=== PATIENT | female | born 1990 | race Hispanic/Latino ===

== ENCOUNTER 2023-09-02 20:52 | Emergency (ER) | payer BC, OTHER, SELFPAY ==
[2023-09-02 20:53] VITALS: BMI 26.2
[2023-09-02 20:56] VITALS: BP 140/59
[2023-09-02 21:11] LABS: % Basophils 0.3 % (0-2); % Eosinophils 1.2 % (0-6); % Immature Granulocytes 0.3 % (0-0.5); % Lymphocytes 29.1 % (20.5-51.1); % Neutrophils 61.1 % (42.2-75.2); Absolute Eosinophils 0.1 10^3/uL (0-0.7); Absolute Lymphocytes 2.3 10^3/uL (1.2-3.4); Absolute Monocytes 0.6 10^3/uL (0.1-0.6); Absolute Neutrophils 4.8 10^3/uL (1.4-6.5); Hematocrit 32.3 % (37.0-47.0); Hemoglobin 11.5 g/dL (12.0-16.0); Mean Corp Hgb Conc. 35.6 g/dL (33.0-37.0); Mean Corpuscular Hgb 30.1 pg (27.0-31.0); Mean Corpuscular Volume 84.6 fL (81.0-99.0); Mean Platelet Volume 8.5 fL (7.4-10.4); Nucleated Red Blood Cells % 0 %; Platelet Count 358 10^3/uL (130-400); Red Blood Cell Count 3.82 10^6/uL (4.20-5.40); Red Cell Dist. Width 13.6 % (11.5-14.5); White Blood Cell Count 7.8 10^3/uL (4.8-10.8)
[2023-09-02 21:14] LABS: Urine Albumin Negative (Neg - Trace); Urine Bilirubin Negative (Negative); Urine Character Clear (Clear); Urine Color Yellow; Urine Glucose Negative (Negative); Urine Ketone Negative (Negative); Urine Leukocyte Trace (Negative); Urine Nitrite Negative (Negative); Urine Occult Blood Trace (Negative); Urine Specific Gravity 1.015 (<1.030); Urine Urobilinogen Negative (Neg - 1+)
[2023-09-02 21:29] LABS: ALT (SGPT) 24 U/L (0-35); AST (SGOT) 29 U/L (14-36); Albumin 4.1 g/dl (3.5-5.0); Alkaline Phosphatase 52 U/L (38-126); Blood Urea Nitrogen 11 mg/dl (7-17); Calcium 9.8 mg/dl (8.4-10.2); Carbon Dioxide 25 mmol/L (22-30); Chloride 100 mmol/L (98-107); Glucose 89 mg/dl (70-99); Potassium 4.6 mmol/L (3.5-5.1); Sodium 135 mmol/L (135-145); Total Bilirubin 0.2 mg/dl (0.2-1.3); Total Protein 7.4 g/dl (6.3-8.2); eGFR > 60.00
[2023-09-02 21:32] LABS: Urine Red Blood Cell 0-2 /HPF (0-2); Urine Squamous Cell >30 /LPF (Few); Urine White Cell 0-2 /HPF (0-5)
[2023-09-02 21:42] LABS: Lipase 45 U/L (23-300)
--- NOTE | 2023-09-02 22:46 | ED.GENMED ---
History of Present Illness
<CLAUDIA Luna - Last Filed: 09/02/23 23:18>
General
Chief Complaint: Abdominal Symptoms
Source: patient
Exam Limitations: none
Time Seen by Provider: 09/02/23 22:30
Nursing documentation reviewed up to this point in time: agreed with
Travel History
Have you had any contact with someone who has COVID-19?: No
Do you have any symptoms of coronavirus? Fever > 100 degrees, chills, cough, shortness of breath, sore throat, loss of taste or smell, muscle aches, or headache?: No
History of Present Illness
History of Present Illness:
This is a 33 year old female who is 6 weeks , with a PMH of hepatitis C, who presents to the ED c/o abdominal pain x 3 days. Pt states her abdomen feels very bloated and distended and she has a dull constant pain. Pt states she has been
constipated and cannot remember the last time she had a full bowel movement. She had a small BM 2 days ago but notes it was very hard and scant. Pt has also had associated SOB since the pain began and feels as though she can't take a deep breath.
She also states she has been nauseous and has had a PIERSON since this morning. She denies any fever, reflux, vomiting, diarrhea, dysuria, hematuria, or blood in her stool.
Pt has been following with her OB and last had an outpatient ultrasound last week at a clinic. She adds that she had an US at [facility] 3.5 weeks ago due to lower abdominal pain but it was benign.
Past History
<CLAUDIA Luna - Last Filed: 09/02/23 23:18>
Past History
ED Past Medical History: Other (Substance use disorder, IV drug abuse, hepatitis C)
ED Past Surgical History:
Social History
Tobacco: Vaping
Alcohol: None
Drug: Cocaine, Narcotics and IVDA
Personal: Single
Living: with family
Employment: Not employed
Family History
Family History: Other (Noncontributory)
Review of Systems
<CLAUDIA Luna - Last Filed: 09/02/23 23:18>
Review of Systems
Allergies reviewed?: Yes
All Other Systems: ROS reviewed and negative except as documented in HPI and ROS
Constitutional: Reports no symptoms; Denies fever
EENT: Reports no symptoms
Respiratory: Reports trouble breathing
Cardiac: Reports no symptoms
ABD/GI: Reports abdominal pain, nausea and constipated; Denies vomiting or diarrhea
: Reports no symptoms; Denies dysuria or bleeding
Musculoskeletal: Reports no symptoms
Skin: Reports no symptoms
Neurological: Reports headache
Psychiatric: Reports no symptoms
Phy Exam
<CLAUDIA Luna - Last Filed: 09/02/23 23:18>
General Physical Exam
General Presentation: no apparent distress
General age: appears stated age
General Skin: warm and dry
General Habitus: normal
General Mental: alert
General Hydration: appears well hydrated
ENT Exam
ENT Exam: pharynx normal, normocephalic and swallowing well
Cardiovascular Exam
Cardiovascular Exam: regular rate/rhythm, no edema, no murmur and normal peripheral pulses
Pulmonary Exam
Pulmonary Exam: lungs clear, no respiratory distress, no rales, no crackles, no rhonchi, no wheezing and no cough
Gastrointestinal Exam
Gastrointestinal Exam: normal bowel sounds, non tender and distended
Neurological Exam
Neurological Exam: alert and oriented x3
Musculoskeletal Exam
Musculoskeletal Exam: full ROM and no edema
Skin Exam
Skin Exam: normal color and warm/dry
Psychiatric Exam
Psychiatric Exam: normal mood/affect
Course
<CLAUDIA Luna - Last Filed: 09/02/23 23:18>
Orders/Labs/Results
Orders:
Orders
09/02/23 20:55
IV Insert/Care/Rem.- Treatment PRN
09/02/23 21:05
Complete Blood Count/With Diff Urgent
Comprehensive Metabolic Panel Urgent
Fentanyl, Urine Urgent
Lipase Urgent
Urinalysis Reflex To Culture Urgent
Date Specimen was Collected: 09/02/23
Time Specimen was Collected: 20:55
Urine Drug Abuse Screen Urgent
Date Specimen was Collected: 09/02/23
Time Specimen was Collected: 20:55
Urine Microscopic Reflex Cult Urgent
09/02/23 22:53
Add On- LAB Urgent
Tests Added?: urine drug abuse screen
09/02/23 23:57
Add On- LAB Urgent
Tests Added?: hcg quantative
09/03/23 00:01
Beta HCG Quantitative Urgent
09/03/23 23:17
US Abdomen Complete/Upper Urgent
Reason For Exam: upper abd pain, bloating
US 1st Trimester Urgent
Reason For Exam: abd pain, 6 wks preg LMP (?)07/13/23
Abnormal Lab Results
09/02/23
21:05
RBC 3.82 L 10^6/uL
(4.20-5.40)
Hgb 11.5 L g/dL
(12.0-16.0)
Hct 32.3 L %
(37.0-47.0)
Ur Occult Blood Reflex Trace A
(Negative)
Leukocyte Esterase Rfl Trace A
(Negative)
Ur Buprenorphine Positive H
(Negative)
09/02/23 21:05
09/02/23 21:05
Vital Signs
Initial and Last Documented VS:
Initial Vital Signs
Temp Pulse Resp BP Pulse Ox
98.3 F 69 17 140/59 100
09/02/23 20:56 09/02/23 20:56 09/02/23 20:56 09/02/23 20:56 09/02/23 20:56
Last Documented Vital Signs
Temp Pulse Resp BP Pulse Ox
98.3 F 69 17 140/59 100
09/02/23 20:56 09/02/23 20:56 09/02/23 20:56 09/02/23 20:56 09/02/23 20:56
<Donna Figueredo, DO - Last Filed: 09/03/23 02:59>
Orders/Labs/Results
Orders:
Orders
09/02/23 20:55
IV Insert/Care/Rem.- Treatment PRN
09/02/23 21:05
Complete Blood Count/With Diff Urgent
Comprehensive Metabolic Panel Urgent
Fentanyl, Urine Urgent
Lipase Urgent
Urinalysis Reflex To Culture Urgent
Date Specimen was Collected: 09/02/23
Time Specimen was Collected: 20:55
Urine Drug Abuse Screen Urgent
Date Specimen was Collected: 09/02/23
Time Specimen was Collected: 20:55
Urine Microscopic Reflex Cult Urgent
09/02/23 22:53
Add On- LAB Urgent
Tests Added?: urine drug abuse screen
09/02/23 23:57
Add On- LAB Urgent
Tests Added?: hcg quantative
09/03/23 00:01
Beta HCG Quantitative Urgent
09/03/23 23:17
US Abdomen Complete/Upper Urgent
Reason For Exam: upper abd pain, bloating
US 1st Trimester Urgent
Reason For Exam: abd pain, 6 wks preg LMP (?)07/13/23
Abnormal Lab Results
09/02/23
21:05
RBC 3.82 L 10^6/uL
(4.20-5.40)
Hgb 11.5 L g/dL
(12.0-16.0)
Hct 32.3 L %
(37.0-47.0)
Ur Occult Blood Reflex Trace A
(Negative)
Leukocyte Esterase Rfl Trace A
(Negative)
Ur Buprenorphine Positive H
(Negative)
09/02/23 21:05
09/02/23 21:05
Vital Signs
Initial and Last Documented VS:
Initial Vital Signs
Temp Pulse Resp BP Pulse Ox
98.3 F 69 17 140/59 100
09/02/23 20:56 09/02/23 20:56 09/02/23 20:56 09/02/23 20:56 09/02/23 20:56
Last Documented Vital Signs
Temp Pulse Resp BP Pulse Ox
98.3 F 69 17 140/59 100
09/02/23 20:56 09/02/23 20:56 09/02/23 20:56 09/02/23 20:56 09/02/23 20:56
<Donna Figueredo DO - Last Filed: 09/03/23 02:59>
*Radiology
Radiology exam reviewed: radiology read reviewed (Pelvic ultrasound shows single IUP with cardiac motion, measuring 6 weeks 5 days. Ovaries are unremarkable. No free fluid. Abdominal ultrasound shows gallbladder distended with multiple large
gallstones in the fundus mild gallbladder wall thickening negative Roche sign and no pericholecystic flu)
*Pulse Oximetry
Patient hypoxic: no
*Critical Care Note
Total Time (30-74mins, 75-104mins- exclusive of procedures): Not Applicable
ED Attending Note
<CLAUDIA Luna - Last Filed: 09/02/23 23:18>
-
Portions of this chart may have been created with voice recognition software.� Occasional wrong word or��sound alike� substitutions may have occurred due to the inherent limitations of voice recognition software.
<Donna Figueredo DO - Last Filed: 09/03/23 02:59>
ED Attending Note
Patient seen and examined by attending physician: Yes
I performed the substantive portion of visit, reviewed & personally made and approve the management plan that is documented in note by myself or SHAR.: Yes
I performed a history and physical exam of patient and discussed management with resident, I reviewed resident's note and agree with documented findings and plan of care.: Yes
ED Attending Note:
This is a 33-year-old woman who is currently approximately 6 weeks reports last menstrual period she believes July 13 who has been having intermittent abdominal pain over the past month.
She is 3 para 1-0-1-1. Having had early elective AB number of years prior to her first born. No issues with her first .
Initially noted moderate lower abdominal pain and was evaluated at [facility] August 12. She states hCG was positive but ultrasound showed no definitive IUP. She has since been following with her advanced registered nurse and had serial hCGs that were
rising appropriately.
Patient states she had a pelvic ultrasound performed at a free clinic 1 week ago and states that in IUP was visualized and told that everything looks fine.
Over the past 3 to 4 days she has had moderate epigastric abdominal pain, called her advanced registered nurse and was started on Zantac which has helped with her upper abdominal pain. She also notes moderate generalized bloating and moderate constipation. She
has had issues with constipation sporadically for quite some time and reports passing a small hard stool approximately 2 days ago. She has had no hematochezia, no vomiting but has had some intermittent nausea. She denies vaginal discharge no
bleeding.
She has not had a fever nor chills, no back pain, no dysuria nor urgency nor hematuria.
In the past, she has tried sporadic [id number] remedies for constipation such as Colace, fiber supplement without significant success but admits that she has not tried taking these on a regular basis and has not tried anything recently.
She was hoping for her bowels to 'get cleaned out' to help with her bloating and to assist with room for her uterus to grow.
She has history of substance use disorder�opioid abuse and has been clean and sober for the past year, maintained on Subutex and more recently maintained on Sublocade with last injection June 21.
She has discontinued Suboxone treatment since as she fears for to go through withdrawal.
GENERAL: 33-year-old female appears her stated age, bright and alert, pleasant, appears in no acute distress.
EYE: anicteric
NECK: Supple, nontender, no meningismus, no significant adenopathy.
ENT: oral mucosa is moist. No rhinorrhea.
CARDIAC: Regular rate and rhythm. no murmur.
LUNGS: Clear breath sounds bilaterally, no acute respiratory distress, no wheezes/rales/rhonchi
ABDOMEN: Soft, very minimally distended, mild epigastric tenderness with deep palpation only, minimal tenderness left lower quadrant over palpably firm stool, no r/g, no cvat. normoactive BS.
NEUROLOGICAL: Alert and oriented x3, no focal neuro deficits. Gait is cruz and steady.
SKIN: Warm and dry, normal color, skin intact. No rash.
MUSCULOSKELETAL: No C/C/E. peripheral pulses are full and equal b/l. No palpable tenderness.
PSYCH: Normal and appropriate interaction.
Concern for acute gastritis, cholecystitis, less likely pancreatitis, constipation, ascites, ectopic /heterotopic , ovarian cyst, discomforts of .
Labs are reassuring, within normal limits including LFTs, lipase.
Urinalysis shows no evidence of UTI.
Patient does have history of substance use disorder but claims sobriety over the past year and clinically shows no evidence of substance use. Will check UDS for completeness sake.
It is reassuring that H2 david has improved epigastric discomfort but must consider cholecystitis thus will check abdominal ultrasound.
Due to lower abdominal pain, concern for ovarian cyst, ectopic /heterotopic thus will check pelvic ultrasound.
09/03/2023 0248 AM
Pelvic ultrasound shows single IUP with cardiac motion measuring 6 weeks 5 days. Normal ovaries. No free fluid.
Abdominal ultrasound shows a distended gallbladder containing multiple large gallstones in the fundus with mild gallbladder wall thickening but negative Roche sign, no pericholecystic fluid.
Patient continues to appear comfortable with no significant abdominal tenderness.
Labs are reassuring, not consistent with cholecystitis.
Recommend initiating fiber supplement for constipation. Stay well-hydrated on a daily basis. Avoid fatty foods.
Follow-up with [facility] for recheck and patient will be referred to general surgery as well.
Discharge Plan
Departure
Patient Disposition: Home (Routine Discharge)
Date of Disposition: 09/03/23
Time of Disposition: 02:56
Patient with high blood pressure during this ER visit?: No
Condition: Good
Discharge Problem:
Cholelithiases, First trimester , Constipation
Instructions: Constipation, Adult (DC), Gallstones (DC), Stomach Pain in Early
Prescriptions:
No Action
naloxone [Narcan] 4 MG spray,non-aerosol
4 mg intranasal DIRECTED PRN (Reason: unresponsive overdose) Qty: 1 1RF
Referrals:
Roscoe Sabillon MD [Active] - Call in 1-3 days for appt
UNKNOWN,NO INTERVIEW [Family Provider] -
Interventions
Interventions:
*Risk Screen - Suicide Last Done: 09/02/23 20:56
*General Assessment Last Done: 09/02/23 20:56
*Neglect/Abuse Screening Last Done: 09/02/23 20:56
ED- Fall Risk Assessment Last Done: 09/02/23 23:00
*ED COVID-19 Vaccine History Last Done: 09/02/23 20:56
JT-Hrtike-Kqdcirfvnn Assessment Last Done: 09/02/23 23:00
[2023-09-02 23:29] LABS: Amphetamines Negative (Negative); Barbiturates Negative (Negative); Benzodiazepines Negative (Negative); Buprenorphine Positive (Negative); Cocaine Negative (Negative); Marijuana Negative (Negative); Methadone Negative (Negative); Methamphetamines Negative (Negative); Opiates Negative (Negative); Phencyclidine Negative (Negative); Tricyclic Antidepressants Negative (Negative)
[2023-09-02 23:49] LABS: Fentanyl, Urine Negative (Negative)
== END 2023-09-03 03:03 | disposition home or self-care (01) ==
LOC: EMR 20:52
PROVIDERS: Emergency Medicine; EMERGENCY PHYSICIAN Emergency Medicine
DX: O26.611 Liver and biliary tract disorders in pregnancy, first trimester (principal); K80.20 Calculus of gallbladder without cholecystitis without obstruction; O99.891 Other specified diseases and conditions complicating pregnancy; K59.00 Constipation, unspecified; O99.331 Smoking (tobacco) complicating pregnancy, first trimester; Z3A.01 Less than 8 weeks gestation of pregnancy; Z86.19 Personal history of other infectious and parasitic diseases; F17.290 Nicotine dependence, other tobacco product, uncomplicated
CPT/HCPCS: 99284; 76700; 76801; 80053; 80306; 80307; 81003; 81015; 83690; 84702; 85025